=== PATIENT | female | born 1995 | race Caucasian/White ===

== ENCOUNTER 2023-04-26 15:19 | Emergency (ER) | payer OTHER ==
[~2023-04-26] VITALS: Ht 162.6 cm; Wt 81.6 kg
[2023-04-26 15:26] VITALS: BP 135/89
--- NOTE | 2023-04-26 15:35 | ED Lower Extremity ---
General Chief Complaint: Lower Extremity Stated Complaint: WC LT KNEE INJ Source: patient Exam Limitations: no limitations History of Present Illness Date Seen by Provider: Apr 26, 2023 Time Seen by Provider: 15:21 Initial Comments 27-year-old female with no pertinent past medical history coming in due to left knee pain. 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 This is the same knee that has had a previous ACL repair, and prior partial ACL tear after that that was left to heal on its own. The pain is constant, worse with movement, better with rest. She has not taken anything for it as of yet. She has been able to walk on it. Otherwise denying any other acute complaints. LMP was 2 days ago. Allergies and Home Medications Allergies Coded Allergies: No Known Drug Allergies (Unverified , 04/26/23) Patient Home Medication List Home Medication List Reviewed: Yes Review of Systems Constitutional: No fever EENTM: no symptoms reported Respiratory: no symptoms reported Cardiovascular: no symptoms reported Gastrointestinal: no symptoms reported Genitourinary: no symptoms reported Musculoskeletal: see HPI Skin: no symptoms reported Psychiatric/Neurological: No Symptoms Reported All Other Systems Reviewed Negative Unless Noted: Yes Past Mpfiicm-Qltluo-Vfkduk Hx Patient Social History Substance use?: No Past Medical History Surgery/Hospitalization HX: ACL repair Surgeries: Yes Physical Exam Vital Signs Vital Signs - First Documented 04/26/23 15:26 Temp 36.4 Pulse 76 Resp 16 B/P (MAP) 135/89 (104) Pulse Ox 99 O2 Delivery Room Air Capillary Refill : Height, Weight, BMI Height: '" Weight: lbs. oz. kg; BMI Method: General Appearance: WD/WN, no apparent distress HEENT: PERRL/EOMI, normal ENT inspection, pharynx normal Neck: non-tender, full range of motion, supple, normal inspection Cardiovascular: regular rate, rhythm, no edema, no murmur Respiratory: chest non-tender, lungs clear, normal breath sounds, no respiratory distress, no accessory muscle use Gastrointestinal: normal bowel sounds, non tender, soft; No distended, No guarding, No rebound Back: normal inspection Hips: bilateral hip non-tender, bilateral hip normal inspection, bilateral hip normal range of motion, bilateral hip no evidence of injury Legs: bilateral leg non-tender, bilateral leg normal inspection, bilateral leg normal range of motion, bilateral leg no evidence of injury Knees: right knee non-tender, right knee normal inspection, right knee normal range of motion, right knee no evidence of injury; left knee bone tenderness (lateral joint line), left knee other (pain with ROM) Ankles: bilateral ankle non-tender, bilateral ankle normal inspection, bilateral ankle normal range of motion, bilateral ankle no evidence of injury Neurologic/Tendon: normal sensation, normal motor functions, normal tendon functions Neurologic/Psychiatric: no motor/sensory deficits, alert, normal mood/affect Skin: normal color, warm/dry Progress/Results/Core Measures Results/Orders My Orders Orders - ROSSY QUINONES MD Knee 3 View Left (04/26/23 15:29) Vital Signs/I&O 04/26/23 15:26 Temp 36.4 Pulse 76 Resp 16 B/P (MAP) 135/89 (104) Pulse Ox 99 O2 Delivery Room Air Progress Progress Note : Progress Note 27-year-old female coming in after stepping off the ambulance and feeling her leg give out, pop, pain in her left knee. ABCs were intact and vitals are s table on presentation. Physical exam with left lateral joint line tenderness which could be an LCL sprain. She does not have any varus laxity on that side, also no obvious LCL tear. Could be meniscus injury. Lesli is equivocal, slightly more loose than the other side, but she has had an ACL repair, this may be her baseline. X-ray of the knee ordered and interpreted by me showing no fracture or dislocation. She was given an Liban bandage and ibuprofen. She should follow-up with the orthopedic surgeon that has done her ACL repair for repeat evaluation. Diagnostic Imaging Diagonstic Imaging: Xray (left knee) Comments NAME: NANETTE BEACHKEO Mijares [facility] REC#: [id number] PT STATUS: REG ER : 1995 PHYSICIAN: ROSSY QUINONES MD ADMIT DATE: 04/26/23/ER FS Draft Date of Exam:04/26/23 KNEE 3 VIEW LEFT EXAMINATION: Left knee radiographs. EXAM DATE: 04/26/2023 3:47 PM COMPARISON: None available. HISTORY: Left knee pain. TECHNIQUE: 3 views. FINDINGS: There is no acute fracture, dislocation or destructive osseous process. Surgical changes of the knee from ligament repair. The joint spaces are normal. The soft tissues are normal. IMPRESSION: No acute osseous abnormality. Dictated on workstation # [id number] Dict: 04/26/23 1549 Trans: 04/26/23 1554 PJ [id number] Interpreted by: ADELINE AVALOS DO Electronically signed by: Departure Impression Primary Impression: Left knee pain Qualified Codes: M25.562 - Pain in left knee Additional Impression: Knee LCL sprain Qualified Codes: S83.422A - Sprain of lateral collateral ligament of left knee, initial encounter Disposition: HOME, SELF-CARE Condition: Stable Departure-Patient Inst. Decision time for Depature: 16:10 Referrals: ELLIS KEANE (PCP) Primary Care Physician NO,LOCAL PHYSICIAN (Family) Primary Care Physician Patient Instructions: Knee Sprain ED Add. Discharge Instructions: It is likely you sprained a ligament in your knee, no obvious tear based on your exam. If you have significant swelling in the next 24 hours, more likely that something is torn or there is meniscus injury. Keep it elevated and wrapped. If you have any brace at home, you can use that as well. Take ibuprofen and/or Tylenol as needed for pain. Of course she can ice and elevate it as well. Follow-up with your orthopedic surgeon to get clearance for work. Work/School Note: Work Release Form Date Seen in the Emergency Department: Apr 26, 2023 Return to Work: Apr 27, 2023 Restrictions: Need Release from Doctor ROSSY QUINONES MD Apr 26, 2023 15:35
--- NOTE | 2023-04-26 15:55 | Diagnostic Imaging Report ---
EXAMINATION: Left knee radiographs. EXAM DATE: 04/26/2023 3:47 PM COMPARISON: None available. HISTORY: Left knee pain. TECHNIQUE: 3 views. FINDINGS: There is no acute fracture, dislocation or destructive osseous process. Surgical changes of the knee from ligament repair. The joint spaces are normal. The soft tissues are normal. IMPRESSION: No acute osseous abnormality. Dictated by: Dictated on workstation # [id number]
== END 2023-04-26 16:09 | disposition home or self-care (01) ==
LOC: ER FS 15:21
DX: S83.92XA Sprain of unspecified site of left knee, initial encounter (principal); X50.1XXA Overexertion from prolonged static or awkward postures, initial encounter
CPT/HCPCS: 73562

== ENCOUNTER → 2023-07-09 | Outpatient (CLI) | payer BC ==
--- NOTE | 2023-07-09 14:45 | Diagnostic Imaging Report ---
INDICATION: Tenderness in the left breast and questionable lump. FINDINGS: Sonographic interrogation of the upper outer left breast was performed. No sonographic abnormality is identified. No solid or cystic mass is detected. IMPRESSION: No sonographic abnormality is detected. ACR BI-RADS Category 1: Negative. Dictated by: Dictated on workstation # [id number]
== END ==
LOC: RAD 12:25
PROVIDERS: ATTEND Family Medicine
DX: N64.59 Other signs and symptoms in breast (principal)